=== PATIENT | male | born 1960 | race African-American/Black ===

== ENCOUNTER 2020-04-11 11:04 | Outpatient (CLI) | payer OTHER ==
--- NOTE | 2020-04-11 12:32 | RAD ---
Radiograph right knee 2 views: 04/11/2020 HISTORY: 59-year-old male with right knee pain. "Disability exam" COMPARISON: None FINDINGS: Small joint effusion. Patellofemoral compartment: Mild bony hypertrophy and irregularity of articular surfaces without odalys re joint space narrowing. Medial compartment: Severe joint space narrowing. Mild bony hypertrophy and mild sclerosis of articul ar surfaces. Lateral compartment: Minimal-mild joint space narrowing. Small osteophytes. No fracture or dislocation. 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
== END 2020-04-11 11:05 | disposition home or self-care (01) ==
LOC: BICRAD 11:04
PROVIDERS: ATTEND Internal Medicine
DX: Z02.71 Encounter for disability determination (principal); M17.11 Unilateral primary osteoarthritis, right knee; M25.861 Other specified joint disorders, right knee